=== PATIENT | female | born 2000 | race Two or more races ===

== ENCOUNTER 2025-01-20 14:48 | Emergency (ER) | payer MEDICAID, SELFPAY ==
[2025-01-20 15:19] VITALS: BP 139/86; PULSE 87; RESP 16; TEMP 36.9; O2SAT 96; BMI 26.8
--- NOTE | 2025-01-20 15:27 | XR_ITS ---
Examination: CT brain head without contrast. 2-D sagittal coronal reconstructions Date and time of exam:January 20, 2025, 1556 hrs. Indications: Blurred vision beginning 4 days ago CTDI: vol (mGy):47.7. DLP: (mGycm):925. Technique: Multiple CT axial sections of the brain have been obtained, 5 mm slice thickness. Contrast has not been administered. 2-D sagittal, coronal reconstructions have been obtained Low dose protocols were performed. One or more of the following dose reduction techniques were used; automated exposure control, adjustment of the mA and/or KV according to patient size, use of iterative reconstruction technique. Findings: No significant ventricular enlargement. Intra-axial or extra-axial hemorrhage density is not seen. No mass effect or midline shift Basal cisterns are not remarkable. Fourth ventricle is midline. Cranial vault intact. Impression: Negative for acute hemorrhage, mass effect or midline shift Advise clinical correlation and follow-up accordingly.
--- NOTE | 2025-01-20 15:28 | PD.EDRME ---
Rapid Medical Screening Exam E Arrival date/time: 01/20/25 14:48 24-year-old female presents to the emergency department day for complaints of facial swelling and disturbances in vision ongoing since Wednesday Chief Complaint: Eye Problems Vital signs: Vital Signs Temperature 98.4 F 01/20/25 15:19 Pulse Rate 87 01/20/25 15:19 Respiratory Rate 16 01/20/25 15:19 Blood Pressure 139/86 H 01/20/25 15:19 Pulse Oximetry (%) 96 01/20/25 15:19 Oxygen Delivery Method Room Air 01/20/25 15:19
[2025-01-20 15:50] LABS: Basophils # (Auto) 0.0 Thou/mm3 (0.0-0.2); Basophils % (Auto) 0 % (0-2.5); Eosinophils # (Auto) 0.0 Thou/mm3 (0.0-0.5); Eosinophils % (Auto) 0 % (0-10); Hematocrit 34.9 % (36.0-46.0); Hemoglobin 11.8 g/dL (12.0-16.0); Immature Granulocytes Auto 0.05 Thou/mm3 (0.00-0.00); Lymphocytes # (Auto) 0.9 Thou/mm3 (1.0-4.8); Lymphocytes % (Auto) 8 % (10-50); Mean Corpuscular HGB Conc 33.8 g/dl (31.0-37.0); Mean Corpuscular Hemoglobin 30.3 pg (25.0-35.0); Mean Corpuscular Volume 90 fL (80-100); Monocytes # (Auto) 0.3 Thou/mm3 (0.0-0.8); Monocytes % (Auto) 3 % (0-12); Neutrophils # (Auto) 9.2 Thou/mm3 (1.8-7.7); Neutrophils % (Auto) 88 % (37-80); Nucleated Red Blood Cell # 0.00 Thou/mm3 (0.00-0.00); Nucleated Red Blood Cell % 0 /100 WBC (0); Platelet Count 294 Thou/mm3 (140-440); RDW Standard Deviation 47.4 fL (36.4-46.3); Red Blood Count 3.90 Miln/mm3 (4.00-5.20); White Blood Count 10.4 Thou/mm3 (3.6-11.0)
[2025-01-20 15:57] LABS: HCG Qualitative,Urine Negative
[2025-01-20 16:09] LABS: Alanine Aminotransferase 33 U/L (10-49); Albumin, Serum 3.7 gm/dL (3.5-5.0); Albumin/Globulin Ratio 0.8 (1.2-2.2); Alkaline Phosphatase 69 U/L (46-116); Anion Gap 7 (7-16); Aspartate Amino Transferase 40 U/L (0-34); BUN/Creatinine Ratio 13 Ratio (12-20); Bilirubin,Total 0.4 mg/dL (0.3-1.2); Blood Urea Nitrogen 9 mg/dL (9-23); C-Reactive Protein < 0.5 mg/dL (0.0-0.9); Calcium 8.9 mg/dL (8.3-10.6); Calcium (Corrected) 9.1 mg/dL (8.5-10.1); Carbon Dioxide 22.6 mMol/L (20.0-31.0); Chloride 107 mMol/L (98-107); Creatinine (Component) 0.7 mg/dL (0.6-1.3); Estimated Creatinine Clearance 126.2 mL/min (>60); Globulin 4.7 gm/dL (2.3-3.5); Glucose 122 mg/dL (74-106); Osmolality,Calculated 273 (275-295); Potassium 4.2 mMol/L (3.4-5.1); Sodium 137 mMol/L (136-145); Total Protein 8.4 gm/dL (5.7-8.2); eGFR > 60 See Note
[2025-01-20 16:24] LABS: Sed Rate (ESR) 106 mm/hr (0-20)
--- NOTE | 2025-01-20 18:26 | EDNOTE_ITS ---
ED Eye Problem RME/HPI General Chief complaint: Eye Problems Stated complaint: BLURRY VISION WITH SWOLLEN EYES X 4 DAYS Time Seen by Provider: 01/20/25 16:22 Arrival date/time: 01/20/25 14:48 RME / HPI RME / HPI Narrative: 01/20/25 14:48 24-year-old female presents to the emergency department day for complaints of facial swelling and disturbances in vision ongoing since Wednesday DR. MURGUIA MAIN ED EVALUATION: 24 y/o female presents to ED c/o BL eye swelling and blurry vision with accompanied itching and dryness x 4 days. Patient has not seen an eye doctor, but did see a GP who prescribed Prednisone. Patient reports initial improvement of symptoms, but worsening today. Related Data Allergies Allergy/AdvReac Type Severity Reaction Status Date / Time Penicillins Allergy Intermediate Hives Verified 01/20/25 14:53 Review of Systems Review of Systems Systems Reviewed: All systems reviewed, normal except as documented ED Exam Narrative Physical exam: GENERAL APPEARANCE: alert and oriented x 4, well-developed, well-nourished, no acute distress VITALS: All vitals were reviewed and the pulse ox is 98% on room air, which is normal according to my interpretation. HEENT: Periorbital edema BL, atraumatic; pupils equal, round, reactive to light; EOMI; mucous membranes pink, moist; oropharynx clear NECK: Supple LUNGS: CTABL; no wheezes, no rales, no rhonchi HEART: Regular rate, regular rhythm; normal S1, S2; no murmurs ABDOMEN: non distended; normal BS; soft, no tenderness, no guarding, no rebound; no masses, no organomegaly, no hernia BACK: no CVA tenderness EXTREMITIES: atraumatic; no edema NEUROLOGIC: awake; alert and oriented x4; cranial nerves II-XII grossly intact; no focal sensory or motor deficits PSYCHIATRIC: appropriate mood and affect SKIN: warm, dry, normal color; no rashes Course Quality Measures none Orders Category Date Time Status Visual Acuity NOW Care 01/20/25 18:[address] head/brain wo con Stat Exams 01/20/25 15:27 Completed SELENA IFA Screen w/refl, IFA* Stat Lab 01/20/25 23:47 Received ANCA Scrn,MPO&PR3,Rflx Titer* Stat Lab 01/20/25 23:47 Received Angiotensin Converting Enzyme* Stat Lab 01/20/25 23:47 Received CBC [CBC] Stat Lab 01/20/25 15:41 Completed CMP [Comprehensive Metabolic Panel] Stat Lab 01/20/25 15:41 Completed CRP [C-Reactive Protein] Stat Lab 01/20/25 15:41 Completed DNA (ds) Antibody* Stat Lab 01/20/25 23:47 Received ESR [Sed Rate (ESR)] Stat Lab 01/20/25 15:41 Completed Free T4 (Free Thyroxine) Stat Lab 01/20/25 15:41 Completed HCG Qualitative,Urine Stat Lab 01/20/25 15:40 Completed Sjogren's ABS (SS-A, SS-B)* Stat Lab 01/20/25 23:47 Received TSH [Thyroid Stimulating Hormone] Stat Lab 01/20/25 15:41 Completed DiphenhydrAMINE [Benadryl] Med 01/20/25 22:12 Discontinued 25 mg PO X1 ONE predniSONE Med 01/20/25 21:57 Discontinued 60 mg PO X1 ONE Vital Signs Vital signs: Vital Signs Temperature 98.4 F 01/20/25 15:19 Pulse Rate 87 01/20/25 15:19 Respiratory Rate 16 01/20/25 15:19 Blood Pressure 139/86 H 01/20/25 15:19 Pulse Oximetry (%) 96 01/20/25 15:19 Oxygen Delivery Method Room Air 01/20/25 15:19 Eye MDM Narrative MDM Narrative:: Scribe Attestation: Delma Cheng, prema scribing for and in the presence of Dr. Murguia. Provider Notation: Although this document has been carefully reviewed, there may still be some phonetic and other typographical errors.? These errors are purely grammatical due to imperfections in the software program and should not be construed in any way to? compromise the substance of the patient's medical care during this visit. Patient data External records reviewed:: [facility] previous records (No prior ED records available for review.) Clinical information provided by:: patient Social determinants that could affect healthcare access:: none Patient has the following chronic illnesses:: None reported How is presenting disease/condition affected by chronic disease/condition?: no chronic disease Evaluation data The following diagnostics were reviewed and interpreted by me:: lab results and radiology exam(s) Lab and/or radiology exams considered but not ordered:: None Interpretation Summary: RADIOLOGY Head/Brain CT: Findings: No significant ventricular enlargement. Intra-axial or extra-axial hemorrhage density is not seen. No mass effect or midline shift Basal cisterns are not remarkable. Fourth ventricle is midline. Cranial vault intact. Impression: Negative for acute hemorrhage, mass effect or midline shift Advise clinical correlation and follow-up accordingly. Medications / Prescriptions Medications or Prescriptions considered but not ordered:: None Medication administrations:: Medication Administration History Discontinued Medications Diphenhydramine HCl (Diphenhydramine 25 Mg Capsule) 25 mg PO X1 ONE Stop: 01/20/25 22:13 Prednisone (Prednisone 20 Mg Tablet) 60 mg PO X1 ONE Stop: 01/20/25 21:58 Last Admin: 01/20/25 22:04 Dose: 60 mg Documented By: See above Consultations Consultation(s) initiated? (list below): Yes Consultation #1 (Physician, Specialty, Details): [facility] made aware of the patient?s HPI, PMHx, lab and/or radiology results. Discussed treatment plan. Will return call after consulting with [employer]er. Time: 21:15 Consultation #2 (Physician, Specialty, Details): Dr. Edmond from [facility] made aware of the patient?s HPI, PMHx, lab and/or radiology results. Discussed treatment plan. Will accept patient for transfer. Time: 21:39 Diagnosis Eye Problem Differential Diagnosis: corneal abrasion, conjunctivitis, acute iritis, hyphema, periorbital cellulitis, subconjunctival hemorrhage, glaucoma, corneal ulcer and ruptured globe Most likely diagnosis given after review of the tests above:: Acute blurred vision, Periorbital edema Admission Indicated Admission indicated?: not indicated Explain why admission is indicated or not indicated:: Patient will be transferred to [facility] Admission Request Was there a request for admission?: No Disposition Plan Disposition Plan: Transfer Discharge Plan Plan Patient Disposition: Xfer Acute Care Fac Facility Pt Being Transferred to: [facility] Service Needed for Transfer: Opthalmology Prescriptions/Referrals Referrals: No Primary/Family,Physician [Primary Care Provider] - In 1 week Problem List Clinical Impression: Blurred vision, bilateral, Periorbital edema of both eyes Patient/Caregiver Discharge Instructions Print Language: [place] Stand Alone Forms: [facility] Award Info., Patient Portal Info Letter
[2025-01-20 18:35] VITALS: BP 147/97; PULSE 94; RESP 16; TEMP 36.9; O2SAT 98
[2025-01-20 19:53] LABS: Free T4 (Free Thyroxine) 1.23 ng/dL (0.89-1.76); Thyroid Stimulating Hormone 1.78 uIU/mL (0.55-4.78)
[2025-01-20 22:00] VITALS: BP 126/97; PULSE 83; RESP 18; TEMP 36.9; O2SAT 98
--- NOTE | 2025-01-20 22:56 | PC.NURSE ---
MD Byers requesting pt to be transferred for ophthalmology due to taras orbital edema with blurry vision. [facility] stated they did not have this specialty on board. Packet sent to [facility] MD Finch accepts ED to ED. They requested pt to be transferred after 300 am due to the transfer not being a priority. Transfer set up at 0330. Packet ready, imaging disk in envelope.
--- NOTE | 2025-01-20 23:27 | PC.NURSE ---
Per Michelle on EMS transfer is ED to ED and needs to go now can not be scheduled to 0330. Mahsa at [facility] made aware, she stated we can transfer pt now and they will notify ED. Michelle made aware transport set up for 0140
[2025-01-25 19:49] LABS: Sjogren's antibody (SS-A) >8.0 POS AI (<1.0 NEGATIVE)
[2025-01-29 08:12] LABS: ANA Screen, IFA NEGATIVE (NEGATIVE); Sjogren's Antibody (SS-B) >8.0 POS AI (<1.0 NEGATIVE)
[2025-01-31 06:26] LABS: ANCA Screen POSITIVE (NEGATIVE); Angiotensin Converting Enzyme* 48 U/L (9-67); DNA (ds) Antibody* 95 IU/mL; Myeloperoxidase Ab <1.0 AI (<1.0); P-ANCA Titer 1:160 titer (<1:20); Proteinase-3 Ab <1.0 AI (<1.0)
== END 2025-01-21 00:11 | disposition short-term general hospital (02) ==
PROVIDERS: Nurse Practitioner Primary Care; Emergency Provider Emergency Medicine
DX: H53.8 Other visual disturbances (principal); R60.0 Localized edema; Z75.1 Person awaiting admission to adequate facility elsewhere
CPT/HCPCS: 36415; 70450; 80053; 81025; 82164; 84439; 84443; 85025; 85652; 86021; 86036; 86038; 86140; 86225; 86235; 99284; J7512